=== PATIENT | male | born 1945 | race Caucasian/White ===

== ENCOUNTER → 2018-04-29 | Outpatient (CLI) | payer MEDICARE ==
[2018-05-01 14:13] LABS: CALCIUM 9.7 mg/dL (8.4-10.2); CREATININE, serum 1.02 mg/dL (0.66-1.25); POTASSIUM 4.8 mmol/L (3.4-5.0)
[2018-05-01 14:14] LABS: ALBUMIN 4.2 gm/dL (3.5-5.0); BILIRUBIN,TOTAL 0.7 mg/dL (0.0-1.0); TOTAL PROTEIN 7.9 gm/dL (6.4-8.2)
== END ==
LOC: COL.LAB 09:55 → EDBD 09:55
PROVIDERS: Family Medicine
DX: I10 Essential (primary) hypertension (principal)

== ENCOUNTER → 2018-06-02 | Outpatient (CLI) | payer MEDICARE ==
[2018-06-02 17:19] LABS: CALCIUM 9.1 mg/dL (8.4-10.2); POTASSIUM 3.7 mmol/L (3.4-5.0)
== END ==
LOC: ZCOL.LAB 16:14
PROVIDERS: Family Medicine
DX: I10 Essential (primary) hypertension (principal)

== ENCOUNTER 2018-07-29 20:12 | Observation (INO) | payer SELFPAY ==
[2018-07-29] VITALS (12 sets, daily range): BP systolic 138; BP diastolic 82; PULSE 54; TEMP 97.7; O2SAT 96–98
[~2018-07-29] VITALS: Ht 175.3 cm; Wt 100.7 kg
[2018-07-29 20:34] LABS: BASO % 0.5 % (0.0-2.0); EOS # 0.2 (0.0-0.7); EOS % 2.9 % (0-4.0); GRAN # 3.3 (1.4-6.5); GRAN % 55.6 % (42.2-75.2); HEMATOCRIT 43.5 % (42.0-52.0); HEMOGLOBIN 14.5 g/dl (13.5-18.0); LYMPH # 1.9 (1.2-3.4); LYMPH % 32.1 % (20.0-51.0); MEAN CELL VOLUME 86 fl (80.0-100.0); MEAN CORPUSCULAR HEMOGLOBIN 29 pg (27.0-31.0); MEAN CORPUSCULAR HGB CONC 33 g/dl (33.0-37.0); MEAN PLATELET VOLUME 10.5 fl (7.4-10.4); MONO # 0.5 (0.1-0.6); MONO % 8.6 % (1.7-9.3); PLATELET COUNT 102 K/mm3 (130-400); RED BLOOD COUNT 5.06 M/mm3 (4.20-5.60); REDCELL DISTRIBUTION WIDTH-CV 14.7 % (11.5-14.5)
[2018-07-29] MEDS ORDERED: IMDUR 30MG30 MG/TAB PO (20:37)
[2018-07-29] MEDS ORDERED: COREG 6.256.25 MG/TA PO (20:37)
[2018-07-29] MEDS ORDERED: PRINIVIL40 MG PO (20:38)
[2018-07-29] MEDS ORDERED: NORVASC 5MG5 MG/TAB PO (20:38)
[2018-07-29 20:42] LABS: PROTHROMBIN TIME 12.2 SECONDS (9.7-12.8)
[2018-07-29] MEDS ORDERED: ASPIRIN 81M81 MG/TA2 PO (20:42)
[2018-07-29 20:45] LABS: PARTIAL THROMBOPLASTIN TIME 31.2 SECONDS (26.0-37.0)
[2018-07-29 20:50] LABS: ALANINE AMINOTRANSFERASE 44 U/L (21-72); ALBUMIN 3.9 gm/dL (3.5-5.0); ALKALINE PHOSPHATASE 70 U/L (50-136); ANION GAP 11 mmol/L (7-16); AST,SGOT 61 U/L (15-37); BILIRUBIN,TOTAL 0.6 mg/dL (0.0-1.0); BLOOD UREA NITROGEN 22 mg/dL (9-20); C-REACTIVE PROTEIN 0.6 mg/dL (0.0-0.9); CARBON DIOXIDE 23 mmol/L (22-30); CHLORIDE 108 mmol/L (98-107); CREATININE, serum 1.08 (0.66-1.25); GLUCOSE 136 mg/dL (74-106); LIPASE 111 U/L (23-300); POTASSIUM 3.8 mmol/L (3.4-5.0); SODIUM 142 mmol/L (137-145); TOTAL PROTEIN 7.4 gm/dL (6.4-8.2)
[2018-07-29 21:06] LABS: TROPONIN-I < 0.012 ng/mL (0.000-0.035)
--- NOTE | 2018-07-29 22:43 | NUR ---
Report called over by HALIMA Arguello. Patient will be brought over via bed
--- NOTE | 2018-07-29 23:30 | NUR ---
Patient arrives to unit at this time with . Patient transfers self to unit bed and is steady on his feet. Patient states that his pain is much improved from earlier and is rating 2/10 aching at his left pectoral. Pain is no longer shooting across his ribs towards his underarm. Patient attached to unit monitoring equipment. Assessment complete, reveals clear lung sounds with diminished bases. Active bowel sounds x4, and a bradycardic HR in the 50's with normal rhythm and S1 and S2 heard. Patient has some slight discoloration to BLE, but has no other skin problems. Completed admission assessment paperwork. MRSA swab obtained. Oriented patient and to room and unit. Explained policies of the ICU. Patient is resting comfortably in bed. Neither patient or has any further questions. No further needs at this time. Will continue to monitor. Call light within reach.
[2018-07-30] VITALS (436 sets, daily range): BP systolic 119–146; BP diastolic 71–87; PULSE 56–61; TEMP 97.7; O2SAT 84–100
--- NOTE | 2018-07-30 03:45 | NUR ---
Dr. Jiang calls at this time. Checking on patient and confirming consultation. Requests patient be kept NPO. Will remove all fluids from the room.
--- NOTE | 2018-07-30 04:00 | NUR ---
Patient sleeping at this time. Awakens to noise in the room. He is alert and oriented. Patient has no complaints of chest pain at this time. Vitals have remained stable. No further needs. Will continue to monitor. Call light within reach.
--- NOTE | 2018-07-30 07:15 | NUR ---
Bedside shift report received from HALIMA Stevens. Pt in bed resting with at bedside. Discussed need to keep home 02 for visitors and not utilize 02 from hospital as we have no monitoring for visitors and it is a liability. Asked for alternatives, if she could go home and get another tank or have someone bring it to her but she states she "wouldn't know how to get there" and didn't have anyone that could bring it to her because it was just "her and her at home". Will address with ICU charge. Otherwise pt denies any chest pain, resting comfortably in bed, understands he is NPO until sees criminal research specialist.
--- NOTE | 2018-07-30 07:26 | NUR ---
Bedside report given to HALIMA Griffin
--- NOTE | 2018-07-30 08:00 | NUR ---
Dr. Booker here to see pt at this time, discussing options for pt and advising on his recommendations. Assessment charted. Pt continues to deny and chest pain. INT to RF. resting at bedside. Will continue to monitor.
--- NOTE | 2018-07-30 09:50 | NUR ---
Called to patients room by social media marketing analyst. Explained by social media marketing analyst that patient's was hooked up to 02 managed by the hospital and per policy this should not happen. Solutions for 02 had been offered. Went to speak with patient and he was notably upset that the nurses were insisting that his could not have her own oxygen tubing connected to the hospital provided oxygen. Expalained to that due to liability reasons and his not being a patient it was the policy of the hospital. Patient yelled at this nurse stating that he had been in [facility] and has never been treated this way or heard of such stupid rules. technology services manager has spoken with about assisting with obtaining a solution from her own oxygen company. They were resistant to give the name of the company or accept this offer. Spoke with ICU a p supervisor and she is reassures this nurse that policy is in affect and appropriate. Went to speak again with patient and he still states that it is unacceptable and would like to be discharged now. This nurse explained that he would have to leave AMA in order to leave now. Reviewed the AMA paperwork with the benifits vs risk to include . patient is in agreement with paperwork and signs without this nurse being able to finish reading the agreement. Encouraged patient that if he is continuing to have chest pain; please report to [facility] or [facility] as he reports that his is treated appropriately there. Also educated patient the importance of following up with his supervisor contact and service clerks. He stated "im not doing that either" Patients nurse updated on conversation
--- NOTE | 2018-07-30 10:05 | NUR ---
I was in another patient room but upon exiting I found that this patient had decided to leave against medical advice as he did not feel it was appropriate that we would not supplement 's oxygen. Pt signed AMA paperwork with housekeeping aide, HALIMA Salazar. Pt changed into own clothes, disconnected from monitoring equipment, INT d/c'd, tip intact. Called Dr. Booker and DENICE Wyman for hospitalist to notify if pt's discharge. Escorted pt and out to front door, criteria met.
--- NOTE | 2018-07-30 10:30 | NUR ---
Initial visit; Die Maker St[employer] acted as a 'sounding board' to family. Die Maker St[employer] excused herself when nurses arrived.
--- NOTE | 2018-07-30 11:56 | NUR ---
MONE met with the patient and patient's , Herrera, to discuss discharge plan. The patient lives in [place] with his . He reports independence with ADLs and does not use any DME. The patient's PCP is Dr. Santos Contreras and he receives his medications at the [facility] in [facility]. He reports no difficulties obtaining his meds. The patient does not have advanced directives and he was not interested in completing them at this time. The patient planned to return home upon discharge. MONE then addressed the social service consult for the patient's . The patient's reports that she ran out of her oxygen. She states that she does have supplies at home, but has no family or friend support to give her a ride home. MONE offered a taxi. The patient's declined. MONE then offered to contact her oxygen provider to deliver some portable tanks to the hospital. The patient and patient's then began to appear upset and refused offer. The patient stated that his has been able to receive oxygen at other hospitals and then stated that he walk himself out of the hospital. MONE notified the assistant warehouse manager. Doughnut Dough Mixer then met with the patient and his and explained the hospital's policy. The patient then left Against Medical Advice. No additional needs at this time.
== END 2018-07-30 10:10 | disposition left against medical advice (07) ==
LOC: COL.ER 20:12 → ICU 21:56 → COL.ER 21:56 → ICU 07-30 10:10
PROVIDERS: Emergency Medicine; ADMIT Family Medicine
DX: R07.9 Chest pain, unspecified (principal); I25.10 Atherosclerotic heart disease of native coronary artery without angina pectoris; Z95.1 Presence of aortocoronary bypass graft; I10 Essential (primary) hypertension; Z95.5 Presence of coronary angioplasty implant and graft; Z79.82 Long term (current) use of aspirin; Z87.891 Personal history of nicotine dependence
CPT/HCPCS: G0378; J1650; J2270; J2405

== ENCOUNTER 2020-02-24 20:55 | Emergency (ER) | payer SELFPAY ==
[~2020-02-24] VITALS: Ht 175.3 cm; Wt 90.9 kg
[~2020-02-24 20:55] MED LIST: ASPIRIN 81M81 MG/TA2 PO; COREG 6.256.25 MG/TA PO; IMDUR 30MG30 MG/TAB PO; NORVASC 5MG5 MG/TAB PO; PRINIVIL40 MG PO
[2020-02-24 21:27] LABS: BASO % 0.6 % (0.0-2.0); EOS # 0.1 (0.0-0.7); EOS % 1.9 % (0-4.0); GRAN # 4.1 (1.4-6.5); GRAN % 56.3 % (42.2-75.2); HEMATOCRIT 42.2 % (42.0-52.0); HEMOGLOBIN 13.7 g/dl (13.5-18.0); LYMPH # 2.4 (1.2-3.4); LYMPH % 33.8 % (20.0-51.0); MEAN CELL VOLUME 80 fl (80.0-100.0); MEAN CORPUSCULAR HEMOGLOBIN 26 pg (27.0-31.0); MEAN CORPUSCULAR HGB CONC 33 g/dl (33.0-37.0); MEAN PLATELET VOLUME 9.8 fl (7.4-10.4); MONO # 0.5 (0.1-0.6); MONO % 7.1 % (1.7-9.3); PLATELET COUNT 97 K/mm3 (130-400); RED BLOOD COUNT 5.25 M/mm3 (4.20-5.60); REDCELL DISTRIBUTION WIDTH-CV 13.9 % (11.5-14.5)
[2020-02-24 21:40] LABS: ALANINE AMINOTRANSFERASE 49 U/L (4-49); ALBUMIN 4.1 gm/dL (3.5-5.0); ALKALINE PHOSPHATASE 80 U/L (50-136); ANION GAP 8 mmol/L (7-16); AST,SGOT 59 U/L (15-37); BILIRUBIN,TOTAL 0.3 mg/dL (0.0-1.0); BLOOD UREA NITROGEN 26 mg/dL (9-20); CALCIUM 9.1 mg/dL (8.4-10.2); CARBON DIOXIDE 27 mmol/L (22-30); CHLORIDE 107 mmol/L (98-107); CREATININE, serum 0.98 (0.66-1.25); GLUCOSE 127 mg/dL (74-106); POTASSIUM 4.1 mmol/L (3.4-5.0); SODIUM 142 mmol/L (137-145); TOTAL PROTEIN 7.6 gm/dL (6.4-8.2)
[2020-02-24 21:53] LABS: TROPONIN-I < 0.012 ng/mL (0.000-0.035)
[2020-02-24] MEDS ORDERED: BONINE25 MG PO (23:23)
[2020-02-24] MEDS ORDERED: ZOFRAN ODT4 MG PO (23:23)
[2020-02-24 23:40] VITALS: BP 130/78; PULSE 68
== END 2020-02-24 23:40 | disposition home or self-care (01) ==
LOC: COL.ER 20:55
PROVIDERS: Emergency Medicine
DX: R07.89 Other chest pain (principal); R42 Dizziness and giddiness; I25.10 Atherosclerotic heart disease of native coronary artery without angina pectoris; I25.2 Old myocardial infarction; Z87.891 Personal history of nicotine dependence; Z95.9 Presence of cardiac and vascular implant and graft, unspecified; Z79.82 Long term (current) use of aspirin
CPT/HCPCS: Q9967

== ENCOUNTER 2020-04-08 16:02 | Emergency (ER) | payer SELFPAY ==
[~2020-04-08 16:02] MED LIST changes: +BONINE25 MG PO; +ZOFRAN ODT4 MG PO
[2020-04-08 16:10] VITALS: TEMP 97.6
[2020-04-08 17:02] LABS: BASO % 0.2 % (0.0-2.0); EOS % 0.3 % (0-4.0); GRAN # 10.6 (1.4-6.5); GRAN % 81.7 % (42.2-75.2); HEMOGLOBIN 10.6 g/dl (13.5-18.0); LYMPH # 1.6 (1.2-3.4); LYMPH % 12.5 % (20.0-51.0); MEAN CELL VOLUME 77 fl (80.0-100.0); MEAN CORPUSCULAR HEMOGLOBIN 24 pg (27.0-31.0); MEAN CORPUSCULAR HGB CONC 31 g/dl (33.0-37.0); MEAN PLATELET VOLUME 10.3 fl (7.4-10.4); MONO # 0.6 (0.1-0.6); MONO % 4.8 % (1.7-9.3); PLATELET COUNT 114 K/mm3 (130-400); RED BLOOD COUNT 4.42 M/mm3 (4.20-5.60); REDCELL DISTRIBUTION WIDTH-CV 14.4 % (11.5-14.5)
[2020-04-08 17:06] LABS: ALANINE AMINOTRANSFERASE 38 U/L (4-49); ALBUMIN 2.8 gm/dL (3.5-5.0); ALKALINE PHOSPHATASE 49 U/L (50-136); ANION GAP 7 mmol/L (7-16); AST,SGOT 55 U/L (15-37); BILIRUBIN,TOTAL 0.4 mg/dL (0.0-1.0); BLOOD UREA NITROGEN 20 mg/dL (9-20); CARBON DIOXIDE 23 mmol/L (22-30); CHLORIDE 107 mmol/L (98-107); CREATININE, serum 0.98 (0.66-1.25); GLUCOSE 129 mg/dL (74-106); POTASSIUM 3.9 mmol/L (3.4-5.0); SODIUM 136 mmol/L (137-145); TOTAL PROTEIN 5.5 gm/dL (6.4-8.2)
[2020-04-08 17:13] LABS: ALCOHOL(ethanol),MEDICAL < 10 mg/dL
[2020-04-08 17:17] LABS: INR 1.3 (0.8-3.0); PROTHROMBIN TIME 14.4 SECONDS (9.7-12.8)
[2020-04-08 17:19] LABS: HEMATOCRIT 34.2 % (42.0-52.0)
[2020-04-08 17:27] LABS: TROPONIN-I < 0.012 ng/mL (0.000-0.035)
[2020-04-08 17:38] VITALS: BP 111/75; PULSE 104
== END 2020-04-08 17:50 | disposition short-term general hospital (02) ==
LOC: COL.ER 16:02
PROVIDERS: Emergency Medicine
DX: S22.42XA Multiple fractures of ribs, left side, initial encounter for closed fracture (principal); S42.102A Fracture of unspecified part of scapula, left shoulder, initial encounter for closed fracture; S01.01XA Laceration without foreign body of scalp, initial encounter; S50.312A Abrasion of left elbow, initial encounter; J93.9 Pneumothorax, unspecified; Z79.82 Long term (current) use of aspirin; V89.2XXA Person injured in unspecified motor-vehicle accident, traffic, initial encounter
CPT/HCPCS: J2405; J3010; J7030; Q9967

== ENCOUNTER 2021-03-21 11:43 | Emergency (ER) | payer SELFPAY ==
[~2021-03-21] VITALS: Ht 177.8 cm; Wt 91.4 kg
[2021-03-21 11:43] VITALS: TEMP 97.7
[2021-03-21 12:13] LABS: BASO % 0.5 % (0.0-2.0); EOS # 0.1 K/mm3 (0.0-0.7); EOS % 0.9 % (0.0-4.0); GRAN # 4.1 K/mm3 (1.4-6.5); GRAN % 70.3 % (42.2-75.2); LYMPH # 1.2 K/mm3 (1.2-3.4); LYMPH % 19.7 % (20.0-51.0); MEAN CELL VOLUME 61 fl (80.0-100.0); MEAN CORPUSCULAR HGB CONC 29 g/dl (33.0-37.0); MEAN PLATELET VOLUME 9.3 fl (7.4-10.4); MONO # 0.5 K/mm3 (0.1-0.6); MONO % 7.9 % (1.7-9.3); PLATELET COUNT 185 K/mm3 (130-400); RED BLOOD COUNT 4.88 M/mm3 (4.20-5.60); REDCELL DISTRIBUTION WIDTH-CV 18.6 % (11.5-14.5)
[2021-03-21 12:14] LABS: HEMATOCRIT 29.9 % (42.0-52.0); HEMOGLOBIN 8.8 g/dl (13.5-18.0); MEAN CORPUSCULAR HEMOGLOBIN 18 pg (27-31)
[2021-03-21 12:27] LABS: ALANINE AMINOTRANSFERASE 48 U/L (0-55); ALBUMIN 3.8 gm/dL (3.4-4.8); ALKALINE PHOSPHATASE 54 U/L (40-150); ANION GAP 15 mmol/L (7-16); AST,SGOT 55 U/L (5-34); BILIRUBIN,TOTAL 0.8 mg/dL (0.2-1.2); BLOOD UREA NITROGEN 21 mg/dL (8-26); CALCIUM 8.7 mg/dL (8.4-10.2); CARBON DIOXIDE 18 mmol/L (23-31); CHLORIDE 104 mmol/L (98-107); CREATININE, serum 1.52 mg/dL (0.72-1.25); GLUCOSE 113 mg/dL (70-99); POTASSIUM 3.9 mmol/L (3.5-4.5); SODIUM 137 mmol/L (136-145); TOTAL PROTEIN 7.5 gm/dL (6.2-8.1)
[2021-03-21 12:35] LABS: TROPONIN-I < 0.010 ng/mL (0.00-0.033)
[2021-03-21 16:20] VITALS: BP 117/62; PULSE 83
== END 2021-03-21 16:22 | disposition home or self-care (01) ==
LOC: COL.ER 11:43
PROVIDERS: Emergency Medicine
DX: D64.9 Anemia, unspecified (principal); R55 Syncope and collapse; I25.10 Atherosclerotic heart disease of native coronary artery without angina pectoris; Z87.891 Personal history of nicotine dependence; Z20.822 Contact with and (suspected) exposure to COVID-19; Z79.82 Long term (current) use of aspirin
CPT/HCPCS: J7120